=== PATIENT | male | born 1955 | race Caucasian/White ===

== ENCOUNTER 2023-11-09 15:11 | Emergency (ER) | payer MEDICARE, OTHER ==
[~2023-11-09] VITALS: Ht 180.3 cm; Wt 208.7 kg
[~2023-11-09 15:11] MED LIST: AMARYL2 MG PO; ASPIRIN81 M1 PO; COD LIVER OIL PO; HYDROCHLOROTHIA25 M1 PO; LOPRESSOR5 MG/5 ML PO; METOPROLOL TART25 GM PO; PERCOCET 325 MG1 TA5 PO; PHENTERMINE H37.5 M1 PO; STOOL SOFTENER100 M3 PO; VITAMIN D400 I1 PO; ZESTRIL40 MG PO
[2023-11-09 17:13] LABS: BASO % 0.2 % (0.0-1.0); EOS # 0.2 10*3/uL (0.0-0.4); EOS % 1.5 % (1.0-4.0); LYMPH % 7.9 % (27.0-41.0); MEAN CORPUSCULAR HGB 16.8 pg (27.0-31.0); MEAN CORPUSCULAR HGB CONC 25.5 g/dl (33.0-37.0); MEAN PLATELET VOLUME 9.5 fl (9.6-12.3); MONO % 8.2 % (3.0-9.0); NEUT # 10.3 10*3/uL (2.3-7.9); NEUT % 81.7 % (47.0-73.0); NUCLEATED RED BLOOD CELL 0.1 10*3/uL (0.0-0.0); NUCLEATED RED BLOOD CELL 0.5 % (0.0-0.0); PLATELET COUNT AUTOMATED 407 10*3/uL (130-400); RED CELL DISTRI WIDTH 21.6 % (0-14.5); WHITE BLOOD COUNT 12.6 10*3/uL (4.8-10.8)
[2023-11-09 17:18] LABS: ACT PARTIAL THROMBO TIME 25.1 SECONDS (20.0-32.1)
[2023-11-09 17:27] LABS: BUN 24 mg/dl (9-23); CHLORIDE 98 mmol/L (98-107)
[2023-11-09] MEDS ORDERED: METFORMIN HYD1000 MG PO (18:15)
[2023-11-09] MEDS ORDERED: DILT-XR240 MG PO (18:17)
[2023-11-09] MEDS ORDERED: K-TAB20 MEQ PO (18:17)
[2023-11-09] MEDS ORDERED: LISINOPRIL20 MG PO (18:18)
[2023-11-09] MEDS ORDERED: LIPITOR40 MG PO (18:20)
[2023-11-09] MEDS ORDERED: COREG25 MG PO (18:21)
[2023-11-09] MEDS ORDERED: FUROSEMIDE40 MG PO (18:22)
== END 2023-11-09 18:54 | disposition home or self-care (01) ==
LOC: ED 15:11
PROVIDERS: Physician Assistant Medical
DX: D64.9 Anemia, unspecified (principal); I10 Essential (primary) hypertension; E11.9 Type 2 diabetes mellitus without complications

== ENCOUNTER → 2023-11-24 | Outpatient (CLI) | payer MEDICARE, OTHER ==
[~2023-11-24] MED LIST changes: +COREG25 MG PO; +DILT-XR240 MG PO; +FUROSEMIDE40 MG PO; +K-TAB20 MEQ PO; +LIPITOR40 MG PO; +LISINOPRIL20 MG PO; +METFORMIN HYD1000 MG PO
== END | disposition home or self-care (01) ==
LOC: LAB 10:36
PROVIDERS: ATTEND Internal Medicine
DX: R93.89 Abnormal findings on diagnostic imaging of other specified body structures (principal); R60.0 Localized edema; M47.819 Spondylosis without myelopathy or radiculopathy, site unspecified